=== PATIENT | female | born 2000 | race African-American/Black ===

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

== ENCOUNTER 2023-09-07 09:18 | Outpatient (CLI) | payer OTHER | END 2023-09-07 09:19 | disposition home or self-care (01) | LOC: BICULT 09:18 | PROVIDERS: ATTEND Student in an Organized Health Care Education/Training Program | DX: E04.2 Nontoxic multinodular goiter (principal) | CPT/HCPCS: 76536 ==